=== PATIENT | female | born 1970 | race Caucasian/White ===

== ENCOUNTER 2024-08-03 17:26 | Emergency (ER) | payer BC, MEDICAID ==
[~2024-08-03] VITALS: Ht 167.6 cm; Wt 84.1 kg
[2024-08-03 17:29] VITALS: TEMP 97.4
[2024-08-03 18:48] LABS: BASOPHILS # (AUTO) 0.1 X10'3 (0-0.2); BASOPHILS % (AUTO) 1.2 % (0-1); EOSINOPHILS # (AUTO) 0.1 X10'3 (0-0.9); EOSINOPHILS % (AUTO) 1.9 % (0-6); HEMATOCRIT 39.9 % (35.0-45.0); HEMOGLOBIN 13.5 g/dl (12.0-16.0); LYMPHOCYTES # (AUTO) 2.9 X10'3 (1.1-4.8); LYMPHOCYTES % (AUTO) 38.8 % (21-51); MEAN CORPUSCULAR HGB CONC 33.9 g/dL (33.0-36.5); MEAN CORPUSCULAR VOLUME 88.5 FL (78-98); MEAN PLATELET VOLUME 7.5 FL (7.4-10.4); MONOCYTES # (AUTO) 0.6 X10'3 (0-0.9); MONOCYTES % (AUTO) 8.3 % (2-12); NEUTROPHILS # (AUTO) 3.7 X10'3 (1.8-7.7); NEUTROPHILS % (AUTO) 49.8 % (42-75); PLATELET COUNT 300 X10'3 (140-440); RED BLOOD COUNT 4.51 X10'6 (4.20-5.60); RED CELL DISTRIBUTION WIDTH 13.8 % (11.5-14.5); WHITE BLOOD COUNT 7.5 X10'3 (4.5-11.0)
[2024-08-03] MEDS: diatr meglu/diatrizoate 30ml oral sol.-(3 dose) bottle PO SCH (18:57)
[2024-08-03] MEDS: ondansetron/PF 4mg/2ml inj IV ONE (18:57)
[2024-08-03 19:20] LABS: ALANINE AMINOTRANSFERASE 20 U/L (12-78); ALBUMIN 3.6 G/DL (3.4-5.0); ALKALINE PHOSPHATASE 69 IU/L (46-116); ANION GAP 9 (8-16); ASPARTATE AMINO TRANSFERASE 17 U/L (10-37); BILIRUBIN,TOTAL 0.7 MG/DL (0.1-1.0); BLOOD UREA NITROGEN 9 MG/DL (7-18); BUN/CREATININE RATIO 11.5 (10.0-20.0); CALCIUM 8.6 MG/DL (8.5-10.1); CHLORIDE 106 MMOL/L (99-107); CREATININE 0.78 MG/DL (0.40-0.90); GLUCOSE 95 MG/DL (70-104); LIPASE 55 U/L (16-77); MAGNESIUM 2.2 MG/DL (1.5-2.4); POTASSIUM 4.2 MMOL/L (3.5-5.1); SODIUM 140 MMOL/L (135-145); TOTAL CARBON DIOXIDE 24.7 MMOL/L (24-32); TOTAL PROTEIN 7.1 G/DL (6.4-8.2); eCRCL 78 ML/MIN; eGFR 77 ML/MIN
[2024-08-03] MEDS ORDERED: iohexol 300mg/ml 100ml inj. ONE (20:25)
[2024-08-03 22:00] VITALS: BP 123/87; PULSE 87; RESP 15; O2SAT 99
--- NOTE | 2024-08-03 22:11 | RADIOLOGY REPORT ---
CT OF THE ABDOMEN AND PELVIS WITH CONTRAST. HISTORY: Diffuse abdominal pain, no bowel movement, no flatus (LUQ > all pain) COMPARISON: None TECHNIQUE: Helical axial CT images of the abdomen and pelvis were obtained with intravenous contrast. Oral contrast also administered. Multiplanar reformats. One or more of the following radiation dose reduction techniques were used for this examination: automated exposure control, adjustment of the mA and/or kV according to patient size, use of iterative reconstruction technique. FINDINGS: Imaged lung bases are grossly clear. Liver: Tiny hypodensity in the anterior right hepatic lobe may represent a cyst but is otherwise too small to further characterize. No other discrete, sizable lesions as visualized. Gallbladder and biliary system: No sizable, radiopaque cholelithiasis or biliary ductal dilatation. Pancreas: Negative. Spleen: Negative. Adrenal Glands: Negative. Kidneys and collecting system: No hydroureteronephrosis. Retroperitoneum: No evidence of abdominal aortic aneurysm. Lymph nodes: No discretely enlarged lymph nodes identified. Bowel: No evidence of bowel obstruction. Enteric contrast is seen to the level of the distal descendi ng colon. The appendix is not clearly identified, however, no pericecal inflammatory changes are note d. No free intraperitoneal air or fluid identified at this time. Pelvis: Bladder is underdistended. No sizable bladder calculus. Osseous structures: No destructive osseous lesions identified. IMPRESSION: No bowel obstruction, free intraperitoneal air/fluid or sizable inflammatory collections identified a t this time.
--- NOTE | 2024-08-03 22:52 | Physician Documentation ---
History of Present Illness ~ Chief Complaint: Constipation Stated Complaint: ABDOMINAL PAIN Time Seen by MD: 18:14 Primary Medical Doctor: bruce stone Mode of Arrival: POV HPI This is a pleasant 54-year-old female who comes in for evaluation of left-sided abdominal pain, intermittent since February, getting worse, with a occasional bulging in the left upper quadrant, and constipation. No bowel movement in quite some time, four days ago had a small abnormal bowel movement, has not passed flatus today. No particular palliating or aggravating factors were elicited with the patient. Never had colonoscopy. 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 Denies any other symptoms such as chest pain or difficulty breathing. Quit smoking. Denies use of tobacco, alcohol or illicit substances this time Medication Reconciliation Allergies: Coded Allergies: Penicillins (Verified Allergy, Unknown, 08/03/24) morphine (Verified Allergy, Unknown, 08/03/24) naproxen (Verified Allergy, Unknown, 08/03/24) Review of Systems ROS 10 point review of systems was performed and unless noted above in HPI is negative for acute process/complaint. Physical Exam Vital Signs: Temperature: 97.4, Source: Temporal, Heart Rate: 79, Respiratory Rate: 15, BP: 115/65, Pulse Oximetry: 100, Weight: 84.090 Oxygen Flow Rate: 0 Physical Exam GENERAL: Awake, alert, oriented, GCS 15, no apparent distress, non-toxic appearing, answers questions, follows commands appropriately. HEENT: Atraumatic, normocephalic, pupils equal, extraocular muscles intact, sclerae anicteric, mucus membranes moist, oropharynx is clear, no stridor. NECK: supple, full active range of motion, trachea midline, no thyromegaly, no lymphadenopathy, no JVD. CARDIOVASCULAR: regular rate/rhythm, no murmurs/gallops/rubs, Pulses are 2+ in all extremities and symmetric. Capillary refill less than 2 seconds. PULMONARY: Nonlabored, good air movement ,no respiratory distress, speaking in full sentences, clear to auscultation bilaterally, no wheezing, no ronchi, no rales, no accessory muscle use. GASTROINTESTINAL: Soft, non-tender, non-distended, normal active bowel sounds, no organomegaly, no pulsatile masses, no CVA tenderness. NEUROLOGIC: Lucid with normal mental status. Normal facial symmetry. Moves all extremities symmetrically and with purpose. No truncal ataxia. Speech is fluid without evidence of dysarthria or aphasia, no focal deficits appreciated. MUSCULOSKELETAL: There is full range of motion of all extremities. There is no joint pain or joint swelling or joint erythema. There is no muscle pain or tenderness or swelling. EXTREMITIES: warm, well-perfused, no cyanosis, no clubbing, no edema, no acute deformities. Skin: warm, dry, no rashes or lesions, no jaundice, no petechiae orpurpura. No ecchymosis. PSYCHIATRIC: Normal affect, normal insight, normal concentration. Focused exam: [] No guarding or rebound Progress Results/Orders Results/Orders Orders - CHRIS CH DO Saline Lock (08/03/24 18:34) Ct Abdomen Pelvis (08/03/24 20:30) Completed Orders - CHRIS CH DO Cbc/Diff (08/03/24 18:34) Lipase (08/03/24 18:34) MG (08/03/24 18:34) Ct Abdomen Pelvis (08/03/24 20:30) Hs Troponin I W Calculations (08/03/24 18:34) CMP (08/03/24 18:34) Diatr Meglu/Diatrizoate 30ml (Gastrograf (08/03/24 18:35) Ondansetron Inj. (Zofran 4mg/2ml Vial) (08/03/24 18:35) Iohexol 300mg/Ml 100ml Inj. (Omnipaque-3 (08/03/24 20:25) Medications Received in ER Medications (Trade) Dose Ordered Sig/Ayla Route PRN Reason Start Time Stop Time Status Last Admin Dose Admin (Gastrografin 66-10 oral solution) 10 ml Q45M PO 08/03/24 18:35 08/03/24 20:06 DC 08/03/24 20:30 10 ML (Zofran 4mg/2ml vial) 4 mg ONCE ONCE IV 08/03/24 18:35 08/03/24 18:36 DC 08/03/24 18:57 4 MG Vital Signs 08/03/24 08/03/24 08/03/24 08/03/24 17:29 18:13 18:19 20:00 Temp 97.4 Pulse 95 80 78 Resp 16 18 18 15 B/P (MAP) 125/90 120/68 (85) 122/65 (84) Pulse Ox 99 97 100 O2 Flow Rate 0 0 08/03/24 21:00 Pulse 79 Resp 15 B/P (MAP) 115/65 (82) Pulse Ox 100 Laboratory Tests Test 08/03/24 18:39 White Blood Count 7.5 Red Blood Count 4.51 Hemoglobin 13.5 Hematocrit 39.9 Mean Corpuscular Volume 88.5 Mean Corpuscular Hemoglobin 30.0 Mean Corpuscular Hemoglobin Concent 33.9 Red Cell Distribution Width 13.8 Platelet Count 300 Mean Platelet Volume 7.5 Neutrophils (%) (Auto) 49.8 Lymphocytes (%) (Auto) 38.8 Monocytes (%) (Auto) 8.3 Eosinophils (%) (Auto) 1.9 Basophils (%) (Auto) 1.2 H Neutrophils # (Auto) 3.7 Lymphocytes # (Auto) 2.9 Monocytes # (Auto) 0.6 Eosinophils # (Auto) 0.1 Basophils # (Auto) 0.1 CBC Comment Sodium Level 140 Potassium Level 4.2 Chloride Level 106 Carbon Dioxide Level 24.7 Anion Gap 9 Blood Urea Nitrogen 9 Creatinine 0.78 Estimated GFR/1.73 m2 77 BUN/Creatinine Ratio 11.5 Glucose Level 95 Calcium Level 8.6 Magnesium Level 2.2 Total Bilirubin 0.7 Aspartate Amino Transf (AST/SGOT) 17 Alanine Aminotransferase (ALT/SGPT) 20 Alkaline Phosphatase 69 Troponin I High Sensitivity 6 Total Protein 7.1 Albumin 3.6 Globulin 3.5 Albumin/Globulin Ratio 1.0 L Lipase 55 Chemistry Comments Medical Decision Making Findings Facility Status: ED Holds, [facility] process The plan was discussed with the patient, who demonstrates clear understanding of the plan and is in agreement with the plan unless otherwise noted in the chart. All questions have been answered, all concerns were addressed unless otherwise documented. I was available throughout their ED stay for frequent reassessment and questions. Differential Diagnoses (considered and possible or likely): [Differential diagnosis considered includes acute appendicitis, acute cholecystitis, pancreatitis, gastritis, PUD, diverticulitis, mesenteric ischemia, abdominal aortic aneurysm, bowel obstruction, enteritis, colitis, fecal impaction, volvulus, IBS, inflammatory bowel disease, specific food intolerance, peritonitis, perforated viscous, malignancy, UTI, abscess, and abdominal pain NOS. Pelvic source of pain was also considered including endometritis, dysmenorr hea, ovarian cyst, ovarian torsion, PID, TOA, cervicitis, vaginitis, or uterine fibroid. History, physical exam, and workup exclude many of the more serious causes listed above. ] ??Differential Diagnoses (considered and unlikely, not requiring evaluation currently): [See above] MDM Data Please see [facility] for the following: Independent Historians and external Records Review. Historian: [Patient] Independent Historians: ?[None] Medication Management: [Reviewed medication list] Social History and determinants: [Reviewed] Please see the body of the note for the following: Any independent interpretations of ECG, imaging studies. All vitals signs/haemodynamics, ordered tests were independently reviewed and interpreted by myself. Nursing triage complaint and vitals reviewed, additional nursing notes were re viewed as available and I agree unless otherwise noted or documented in contradiction in the chart Vital Signs: Independently reviewed Labs: Independently interpreted Imaging: Independently interpreted Old Medical Records: Independently reviewed, see [facility] for relevant summary and information Pulse Oximetry: [97%] interpreted as [normal on room air] by me [Patient Access Coordinator: [Regular Rate, Regular rhythm, no ectopy, NSR] reviewed and interpreted by me] Additionally notably showing: [Hemodynamics reviewed. Not febrile, not tachycardic, no evidence of hypotension respiratory distress. Laboratory studies reviewed. CBC normal no evidence of leukocytosis, no evidence of anemia or thrombocytopenia. Metabolic panel notable for normal values without any derangement whatsoever. Lipase is normal. Given prior history of pancreatitis in concern for small bowel obstruction CT was obtained. She has contrast throughout her entire bowel all the way down to descending colon. No evidence of constipation. No acute intra-abdominal process.] Tests considered but not ordered include: [Ultrasound has been considerably does not appear to be necessary again patient's pathology] Social Determinants of Health Impact: Patient was evaluated in [facility], or [facility] [place] healthcare due to below par ratio of patient to medical providers. [] Comorbid Conditions Impacting Present Evaluation and Care/Treatment: [History of pancreatitis] Management Discussions with other Healthcare Providers: [None] Treatment and Disposition Medication Management (Given or considered): []. See EMR for details Consideration for Hospitalization/Escalation/Deescalation of Care: Admission for observation has been considered, [however the patient is able to tolerate p.o., their symptoms are controlled, they are able to rely on oral medications, and their chief complaint/diagnosis can be managed on outpatient basis.] ?ED Course:?[No clinical deterioration] ?Shared decision making:?[Patient is hemodynamically stable for discharge home with follow with their primary care provider. [ ] Specific and cautious return precautions provided and discussed with full understanding. Any incidental findings were also discussed and follow up recommendations given. [] All questions answered. Patient/family were able to verbalize back return precautions. Patient/family agree to plan. Copies of imaging and laboratory studies were provided.] Code status:?FULL Please see the full Electronic Medical Record for full details of nursing documentation, medications list, other records of complete past medical history and conditions, vital signs, laboratory studies, and any radiologic study interpretations by radiologists. Portions of this note were completed using [employer] dictation software and as a result there may exist minor errors in spelling. I have reviewed elements of past family and social history and agree as included in note. Departure Disposition: 01 HOME / SELF CARE / HOMELESS Impression: Primary Impression: Left sided abdominal pain Condition: Improved Discharge Instructions: Abdominal Pain, Adult Referrals: NO PRIMARY CARE PROVIDER (PCP) Education Educated: Patient Educated regarding: diagnosis, treatment, prognosis, need for follow up Signature Scribe Signature: No scribe Attestation: This note accurately reflects clinical decisions, work performed by myself, Chris Ch, CHRIS DAVENPORT DO Aug 03, 2024 22:52
== END 2024-08-03 23:17 | disposition home or self-care (01) ==
LOC: ER 17:27
DX: R10.12 Left upper quadrant pain (principal); Z87.891 Personal history of nicotine dependence; Z88.0 Allergy status to penicillin; Z88.5 Allergy status to narcotic agent; Z88.6 Allergy status to analgesic agent
CPT/HCPCS: 36415; 74177; 80053; 83690; 83735; 84484; 85025; 96374; 99285; J2405; Q9963; Q9967